=== PATIENT | female | born 2000 | race African-American/Black ===

== ENCOUNTER 2019-06-26 15:11 | Emergency (ER) | payer MEDICAID ==
--- NOTE | 2019-06-26 16:05 | ED ---
GI/ HPI - HPI Summary HPI Summary: 18-year-old female presents abdominal pain for the past 2 days. She states pain is on the left side. States is sharp. States changes in intensity. She admits to sore throat and sinus congestion. She has some ear pressure. Admits to shortness breath that resolved yesterday. She admits occasional cough. No nausea and vomiting. Admits to diarrhea and constipation. No urinary symptoms. [facility] so was sent here. - History of Current Complaint Chief Complaint: EDAbdPain Time Seen by Provider: 06/26/19 15:46 Stated Complaint: ABDOMINAL PAIN/HIGH WHITE CELL COUNT PER PT Pain Intensity: 0 - Allergy/Home Medications Allergies/Adverse Reactions: Allergies Allergy/AdvReac Type Severity Reaction Status Date / Time Pollen Allergy Runny Nose Uncoded 06/26/19 15:20 Home Medications: Home Medications NK [No Home Medications Reported] 06/26/19 [History Confirmed 06/26/19] PMH/Surg Hx/FS Hx/Imm Hx Endocrine/Hematology History: Denies: Hx Anticoagulant Therapy Respiratory History: Denies: Hx Asthma Infectious Disease History: No Infectious Disease History: Denies: Traveled Outside the [place] in Last 30 Days - Family History Known Family History: Positive: Non-Contributory - Social History Alcohol Use: Occasionally Substance Use Type: Reports: Marijuana Smoking Status (MU): Never Smoked Tobacco Review of Systems Negative: Fever Positive: Sore Throat Negative: Chest Pain Positive: Cough. Negative: Shortness Of Breath Positive: Abdominal Pain All Other Systems Reviewed And Are Negative: Yes Physical Exam Triage Information Reviewed: Yes Vital Signs On Initial Exam: Initial Vitals Temp Pulse Resp BP Pulse Ox 98.8 F 74 16 131/79 100 06/26/19 15:12 06/26/19 15:12 06/26/19 15:12 06/26/19 15:12 06/26/19 15:12 Vital Signs Reviewed: Yes Appearance: Positive: Well-Appearing Skin: Positive: Warm, Dry Head/Face: Positive: Normal Head/Face Inspection Eyes: Positive: Normal, EOMI, APRIL, Conjunctiva Clear ENT: Positive: Normal ENT inspection, Pharyngeal erythema, TMs normal, Uvula midline, Other - soft palate symmetric. Negative: Tonsillar swelling, Tonsillar exudate, Trismus, Muffled voice Neck: Positive: Enlarged Nodes @ - cervical Respiratory/Lung Sounds: Positive: Clear to Auscultation, Breath Sounds Present Cardiovascular: Positive: Normal, RRR Abdomen Description: Positive: Soft, Other: - tenderness in LUQ Bowel Sounds: Positive: Present Musculoskeletal: Positive: Normal Neurological: Positive: Normal Psychiatric: Positive: Normal Diagnostics - Vital Signs Vital Signs Temp Pulse Resp BP Pulse Ox 06/26/19 15:12 98.8 F 74 16 131/79 100 - Laboratory Result Diagrams: 06/26/19 16:19 06/26/19 16:19 Lab Statement: Any lab studies that have been ordered have been reviewed, and results considered in the medical decision making process. Re-Evaluation - Re-Evaluation First Eval Re-Evaluation Time: 16:49 Comment: tenderness in LUQ and LLQ, nontender RLQ and RUQ GIGU Course/Dx - Course Course Of Treatment: 18-year-old female presents abdominal pain for the past 2 days. She states pain is on the left side. States is sharp. States changes in intensity. She admits to sore throat and sinus congestion. She has some ear pressure. Admits to shortness breath that resolved yesterday. She admits occasional cough. No nausea and vomiting. Admits to diarrhea and constipation. No urinary symptoms. [facility] so was sent here. On exam pharynx erythematous. Uvula midline. Has enlarged cervical adenopathy. Lungs to auscultation. Abdomen tenderness in left upper quadrant. strept neg. wbc 12. crp slightly elevated. potassium 3.4 so gave supplement. mono neg. will treat as viral syndrome. told if symptoms change to return. patient understand and agrees with plan. - Diagnoses Differential Diagnoses - Female: Gastritis, Gastroenteritis (Viral), Other - mono Provider Diagnoses: Pharyngitis, Abdominal pain Discharge ED - Sign-Out/Discharge Documenting (check all that apply): Patient Departure Patient Received Moderate/Deep Sedation with Procedure: No - Discharge Plan Condition: Good Disposition: HOME Patient Education Materials: Upper Respiratory Infection (ED) [facility] [[facility] Care Provider] - Additional Instructions: Use saline in the nose Take Tylenol and ibuprofen for pain/fever every 6 hours follow up with [facility] if no improvement Return to ED if develop any new or worsening symptoms - Billing Disposition and Condition Condition: GOOD Disposition: Home
[2019-06-26 16:14] LABS: Urine Appearance Cloudy; Urine Bilirubin Negative (Negative); Urine Blood Negative (Negative); Urine Color Yellow; Urine Glucose Negative (Negative); Urine Ketones Trace (Negative); Urine Nitrite Negative (Negative); Urine Protein Negative (Negative); Urine Urobilinogen Negative (Negative)
[2019-06-26 16:21] LABS: Rapid Strep Molecular Negative (Negative)
[2019-06-26 16:29] LABS: ABS Basophils 0.1 10^3/ul (0-0.2); ABS Eosinophils 0.2 10^3/ul (0-0.6); ABS Lymphocytes 2.4 10^3/ul (1.0-4.8); ABS Neutrophils 8.3 10^3/ul (1.5-7.7); Eosinophil % 1.4 %; Hematocrit 40 % (35-47); Hemoglobin 13.6 g/dL (12.0-16.0); Lymphocyte % 19.9 %; Mean Corpuscular HGB Conc 34 g/dL (31-36); Mean Corpuscular Hemoglobin 31 pg (27-31); Mean Corpuscular Volume 92 fL (80-97); Mean Platelet Volume 7.8 fL (7.4-10.4); Platelet Count 337 10^3/uL (150-450); Red Blood Count 4.33 10^6 /uL (3.70-4.87); Red Cell Distribution Width 13 % (10-15)
[2019-06-26 16:49] LABS: ALT 9 U/L (7-52); AST 13 U/L (13-39); Albumin 4.3 g/dL (3.2-5.2); Albumin/Globulin Ratio 1.6 (1-3); Alkaline Phosphatase 58 U/L (34-104); Amylase 33 U/L (29-103); Anion Gap 6 mmol/L (2-11); BUN/Creatinine Ratio 8.6 (8-20); Blood Urea Nitrogen 6 mg/dL (6-24); C Reactive Protein 13.64 mg/L (<8.01); CO2 Carbon Dioxide 27 mmol/L (22-32); Calcium 9.2 mg/dL (8.6-10.3); Chloride 105 mmol/L (101-111); EGFR African American 130.4 (>60); EGFR Non-African American 107.8 (>60); Globulin 2.7 g/dL (2-4); Glucose 95 mg/dL (70-100); Potassium 3.4 mmol/L (3.5-5.0); Sodium 138 mmol/L (135-145)
[2019-06-26 16:54] LABS: HCG Pregnancy < 0.60 mIU/mL
[2019-06-26] MEDS ORDERED: Potassium Chlor TAB* 10 MEQ TAB.ER PO ONE (17:53)
[2019-06-26 18:12] VITALS: BP 116/74
== END 2019-06-26 18:03 | disposition home or self-care (01) ==
LOC: ED 15:11
DX: R10.9 Unspecified abdominal pain (principal); J02.9 Acute pharyngitis, unspecified
CPT/HCPCS: 36415; 80053; 81003; 82150; 83605; 83690; 83735; 84702; 85025; 86140; 86308; 87651; 99282; A9270-GY